=== PATIENT | female | born 1970 | race Caucasian/White ===

== ENCOUNTER → 2021-10-12 17:54 | Outpatient (CLI) | payer BC, SELFPAY ==
--- NOTE | ~2021-10-12 | MR_ITS ---
EXAMINATION: MR knee RT wo con DATE: 10/12/2021 18:27 INDICATION: Right knee pain TECHNIQUE: Magnetic resonance imaging (MRI) of the right knee was performed without intravenous contr ast. Sequences included coronal PD-weighted FSE, coronal PD-weighted FS FSE, sagittal T2-weighted FS E, sagittal PD-weighted FS FSE and axial PD weighted fat saturated FSE. COMPARISON: None. FINDINGS: Medial compartment: Small body and diminutive posterior horn of the medial meniscus consistent with likely prior partial meniscectomy. Horizontal line of increased signal of less than fluid intensity extending to the artic ular surface of the remaining medial meniscal body which is equivocal for recurrent/residual tear ama sasha repaired tear. Deep chondral ulceration without degenerative subchondral changes along the anteri or weightbearing medial femoral condyle. Additional deep chondral ulceration at the central aspect of the medial tibial plateau and more superiorly along the medial third where there is mild underlying subcortical edema-like marrow signal change. Lateral compartment: Lateral meniscus is normal. Articular cartilage is normal. Patellofemoral compartment: Deep chondral fissuring without degenerative subchondral changes at the central aspect of the medial and lateral patellar facets as well as the caudal aspect of the trochlear groove and medial trochlea . Additional partial thickness chondral fissuring involving approximately 50% of the cartilage thickn ess at the central aspect of the lateral trochlea. Ligaments and tendons: Anterior and posterior cruciate ligaments are normal. The medial collateral ligament and fibular sabino ateral ligament complex are normal. The extensor mechanism is normal. The visualized medial and later al hamstring tendons as well as the iliotibial band are normal. Fluid: Small right knee joint effusion. No loose osteochondral bodies identified. Osseous/other: Bone alignment is normal. No fracture or pathologic marrow replacing process. IMPRESSION: 1. Changes of likely prior partial medial meniscectomy with longitudinal horizontal tear plane at the remaining meniscal body which could be either new, residual or potentially repaired. Correlate with surgical history and with MR arthrography if clinically indicated for differentiation. 2. Moderate osteoarthritis with extensive moderate and high-grade chondromalacia in the medial compar tment. 3. Mild patellofemoral osteoarthritis with additional moderate grade chondromalacia. Reviewed, dictated and finalized at location A. IMPRESSION: 1. Changes of likely prior partial medial meniscectomy with longitudinal horizo ntal tear plane at the remaining meniscal body which could be either new, resid ual or potentially repaired. Correlate with surgical history and with MR arthro graphy if clinically indicated for differentiation. 2. Moderate osteoarthritis with extensive moderate and high-grade chondromalaci a in the medial compartment. 3. Mild patellofemoral osteoarthritis with additional moderate grade chondromal acia.
== END ==
PROVIDERS: PCP Physician Assistant Medical; Visit Provider Orthopaedic Surgery
DX: M17.11 Unilateral primary osteoarthritis, right knee (principal); M94.261 Chondromalacia, right knee
CPT/HCPCS: 73721

== ENCOUNTER 2021-11-15 01:18 | Day surgery (SDC) | payer BC, SELFPAY ==
[2021-11-13 15:10] VITALS: BMI 41.2
--- NOTE | 2021-11-13 15:17 | PC.NURSE ---
Report to the Outpatient Waiting Room, entrance under the green pavilion located off [facility], at time _0830_ on date _[id number]_. OR Time: __1030_. - You and your visitor will be asked a series of questions to screen for COVID 19 for your protection. - Only one visitor is allowed at this time. - The patient visitor is requested to leave or wait in car when not with patient. - A mask is required within the hospital. Patients may have clear liquids (water, carbonated beverages, clear teas, apple juice) until 3 hours prior to surgery with a maximum of 20 ounces. - No food from midnight until time of surgery Take the following medications with a SIP of water the morning of surgery: Medications to discontinue per physician ___Stop all vitamins and supplements now. Date to take last dose Please no make-up, nail singaporean, hairspray, perfume, deodorant, or body powder the day of surgery. No jewelry (including any body piercings) or valuables the day of surgery, leave them at home. Please take a shower or bath the night before, or the morning of, surgery with an antibacterial soap. Wear comfortable, loose fitting clothing. Children are encouraged to wear pajamas. - Jewelry must be removed prior to entering the operating room. Rings and piercings that are not removed may be cut off. - The hospital will not accept responsibility for valuables. - Please leave all valuables, including medications, at home the day of surgery. If you are going home after surgery, a licensed fire truck driver must drive you home. - NO public transportation without another adult. - We recommend that an adult stay with you for 24 hours following discharge. - We also recommend that you do not drive, make important decision, drink alcoholic beverages, or take any drugs that were not prescribed by your health care provider for at least 24 hours after your discharge time. Follow any additional instructions given to you from your surgeon. If you or anyone in your household have experienced Covid symptoms in the past week, please notify your surgeon or the nurse liaison at the phone number below for possible testing. Telephone instructions given to ____Patient and asked if any additional questions and then verbalized understanding. Patient advised to call surgeon office or pre surgery nurse liaison [phone] if any additional questions.
[2021-11-15] VITALS (8 sets, daily range): BP systolic 115–131; BP diastolic 69–80; PULSE 54–75; RESP 10–18; TEMP 36.7–37.1; O2SAT 95–100
--- NOTE | 2021-11-15 07:13 | WPDHPUPDATE1 ---
History and Physical Update Update Date/Time: 11/15/21 07:13 History and Physical has been reviewed, including an updated exam of the patient. There are NO changes in the patient's condition. Risks, benefits, and alternatives have been discussed and questions answered. Patient agrees to proceed with procedure.
--- NOTE | 2021-11-15 08:48 | P.PNAN_ITS ---
Anes - Initial Pre Proc Eval Procedure: Operation Date: 11/15/21 10:30 Proposed Procedures p Right Knee Arthroscopy - Chris Forbes MD Date/Time: 11/15/21 08:48 Surgeon: Chris Forbes MD Pre Op Diagnosis: Rt Knee Recurrent Medial Meniscus Tear Patient Data Age: 51 Gender: F Height: 1.63 m Weight: 109 kg Allergies Allergy/AdvReac Type Severity Reaction Status Date / Time latex Allergy Mild Rash Verified 11/13/21 15:07 Home Medications Medication Instructions Recorded Confirmed Type drospirenone 3 mg-ethinyl 1 tablet PO DAILY 09/08/21 11/13/21 History estradiol 0.03 mg tablet (Ocella) multivitamin 1 tablet PO DAILY 09/14/21 11/13/21 History Barlean's Brevail 1 cap PO DAILY 11/13/21 11/13/21 History Cerevive 1 tab-cap PO DAILY 11/13/21 11/13/21 History chlorpheniramine 2 1 tablet PO ONCE 11/13/21 11/13/21 History mg-pseudoephedrin 30 mg-acetaminophen 500 mg tablet cholecalciferol (vitamin D3) 125 125 mcg PO DAILY 11/13/21 11/13/21 History mcg (5,000 unit) tablet (Vitamin D3) Patient hx anesthesia problems: none Family hx anesthesia problems: none Results Review: All pre-operative results and documents have been reviewed as part of the pre- operative evaluation. [facility], [facility] Past Medical History Medical History Anxiety Arthritis Medial meniscus, posterior horn derangement Right knee pain Vision abnormalities Weight gain Surgical History Surgical History History of medial meniscus repair of right knee Family History Family History Other Acute myocardial infarction Diabetes mellitus Family history of arthritis Family history of mental disorder Social History Social History Smoking packs per day: 1 Smoking cigarettes per day: 20.0 Years smoked: 15 Smoking pack-years: 15.00 Smoking status: Former smoker Smoking end date: 11/13/01 Alcohol intake: current Substance use: never Living arrangements: with family Gender identity (if verbalized by the patient): Female Spiritual care concerns: No Anes - Eval Final PreProcedure Day of Procedure 11/15/21 08:48 Patient weight: obese Heart: regular rate and rhythm Lungs: clear to auscultation Airway: Mallampati scale class II Neurological: alert and oriented Last oral intake: >/= 8 hours ASA classification: III Emergent: no Anesthetic plan: proceed Anesthesia type and monitoring: general LMA and standard monitoring Results Review: All pre-operative results and documents have been reviewed as part of the pre- operative evaluation. Informed Consent: The patient's anesthetic plan and its attendant risks and benefits were discussed with the patient/family/POA. Questions were solicited and answers provided to the satisfaction of the patient/family/POA.
[2021-11-15] MEDS: ACETAMINOPHEN 500 MG TABLET 1000 MG PO (09:14)
[2021-11-15] MEDS: CELECOXIB 200 MG CAPSULE PO (09:15)
[2021-11-15] MEDS: KETOROLAC 15 MG/ML VIAL (*BKC) IV PUSH (09:17)
[2021-11-15] MEDS: LACTATED RINGERS 1,000 ML 30 ML IV CONT ×2 (09:45→12:55)
[2021-11-15] MEDS: ceFAZolin 2 GM/D5W 50 ML 2 GM/50 ML BAG IVPB (11:39)
[2021-11-15] MEDS: BUPIVACAINE HCL 0.5% PF 30 ML VIAL INFILTRATE (12:00)
[2021-11-15] MEDS: methylPREDNISolone SOD SUCC 125 MG VIAL 80 MG XX (12:43)
[2021-11-15] MEDS: fentaNYL CITRATE INJ (*CRX) 100 MCG/2 ML VIAL 25 MCG IV PUSH ×4 (13:15→13:30)
--- NOTE | 2021-11-15 13:23 | W.PM.PROC2 ---
Procedure Note - Detailed Date of Procedure 11/15/21 Pre-op Diagnosis Rt Knee Recurrent Medial Meniscus Tear Post-op Diagnosis Same Procedure Performed RIGHT KNEE SCOPE Surgeon Chris Forbes MD Anesthesia General Description of Procedure PATIENT WAS TAKEN TO THE OR. RIGHT LEG WAS PREPPED AND DRAPED STERILE. TROCARS WERE PLACED IN THE USUAL FASHION. CAMERA WAS INTRODUCED. THERE WAS CHONDROMALACIA TO THE PATELLA FEMORAL JOINT. THERE WAS A LOT OF SYNOVITIS IN ALL COMPARTMENTS. THE MEDIAL COMPARTMENT SHOWED CHONDROMALACIA TO THE MEDIAL FEMORAL CONDYLE AND MAINLY TO THE TROCHLEA. THERE WAS GRADE 3 TO 4 CHONDROMALACIA IN THE TROCHLEA. THE MEDIAL COMPARTMENT WAS ENTERED.A SHAVER WAS USED TO PREFORM A CHONDROPLASTY. THERE WAS A RECURRENT MEDIAL MENISCUS TEAR. THE TEAR WAS A COMPLEX TYPE. THE TEAR WAS RESECTED WITH A BITER AND A SHAVER DOWN TO A SMOOTH BASE. THE MORE ANTERIOR SEGMENT WAS INTACT. THE ACL WAS IDENTIFIED AND FOUND TO BE INTACT. THE LATERAL COMPARTMENT HAD GRADE 2 CHONDROMALACIA AT THE LATERAL PLATEAU. CHONDROPLASTY WAS PREFORMED. A SYNOVECTOMY WAS PREFORMED WELL. THE PATELLO FEMORAL JOINT UNDERWENT CHONDROPLASTY. THERE WAS GRADE 3 AND 4 CHONDROMALACIA IN MOST OF THE TROCHLEA AND PART OF THE PATELLA. SYNOVECTOMY WAS PREFORMED IN THE SUPERIOR MEDIAL COMPARTMENT. THE WOUNDS WERE APPROXIMATED WITH 4.0 NYLON. STERILE DRESSING WAS APPLIED. PATIENT WAS EXTUBATED. Estimated Blood Loss 5 Complications No immediate complications Condition Stable Disposition PACU
[2021-11-15] MEDS: oxyCODONE HCL (*CRX) 5 MG TAB IR PO (14:01)
== END 2021-11-15 15:00 | disposition home or self-care (01) ==
PROVIDERS: PCP Physician Assistant Medical; Visit Provider Orthopaedic Surgery
PROC: (CPT 29870; principal; 2021-11-15 10:30)
DX: M23.231 Derangement of other medial meniscus due to old tear or injury, right knee (principal); M94.261 Chondromalacia, right knee; M65.861 Other synovitis and tenosynovitis, right lower leg; Z87.891 Personal history of nicotine dependence; E66.9 Obesity, unspecified; Z68.41 Body mass index [BMI] 40.0-44.9, adult
CPT/HCPCS: 29881; A9270; J0690; J1040; J1100; J1885; J2250; J2405; J2704; J2930; J3010; J7120